=== PATIENT | male | born 1965 | race Caucasian/White ===

== ENCOUNTER → 2016-12-23 | Outpatient (CLI) | payer BC ==
[~2016-12-23] MED LIST: ASPIRIN81 M1 PO; ASPIRIN81 MG PO; BENTYL20 MG PO; CHOL MED; FISH OIL300 MG; FOLIC ACID1 MG PO; KCL; LORTAB 10-5001 EACH PO; MEDROL4 MG/DOSE- PO; NAMENDA10 MG PO; NAMENDA5 MG PO; PANTOPRAZOLE SO20 MG PO; PHENERGAN SUPP25 M1 PR; PHENERGAN25 MG PO; PRILOSEC40 MG PO; VITAMIN B-12250 MCG PO; ZOFRAN PO
[2016-12-23 11:14] LABS: FOLATE (FOLIC ACID) >23.6 ng/mL (>5.8)
[2016-12-25 22:09] LABS: SPE A1GLOB (PNL) 0.3 g/dL (0.2-0.3); SPE A2GLOB (PNL) 0.6 g/dL (0.5-0.9); SPE ALB (PNL) 4.3 g/dL (3.8-4.8); SPE BETA 1 GLOBULIN 0.5 g/dL (0.4-0.6); SPE BETA 2 GLOBULIN 0.4 g/dL (0.2-0.5); SPE GAMMA (PNL) 1.2 g/dL (0.8-1.7); SPETP (PNL) 7.2 g/dL (6.1-8.1)
== END | disposition home or self-care (01) ==
LOC: SLAB 08:18
PROVIDERS: Psychiatry & Neurology Neurology
DX: G60.9 Hereditary and idiopathic neuropathy, unspecified (principal)
CPT/HCPCS: 36415; 82607; 82746; 83921; 84165; 84443; 85651; 86140

== ENCOUNTER 2017-07-01 06:50 | Emergency (ER) | payer BC ==
[~2017-07-01] VITALS: Ht 175.3 cm; Wt 89.8 kg
--- NOTE | ~2017-07-01 | US85 ---
[facility] RADIOLOGY TEXT RESULTS PATIENT: BLAISE FRAGOSO LOCATION: SED : 61 UNIT #: [id number] AGE: [address]: Mart Conroy MD SEX: M ORDER DR: [id number] [address] [id number] E MR#: [id number] Acc #: [id number] NAME: BLAISE FRAGOSO : 1965 SEX: M STUDY DATE/TIME: 07/01/2017 8:31 UNIT: SED ROOM: STUDY DESCRIPTION: [facility] [place] [facility] Attending Physician: Mart Conroy M.D. Ordering Physician: Mart Conroy M.D. Primary Care Physician: Ritesh Denise M.D. MEDICAL IMAGING REPORT This report is preliminary unless electronic signature is present. EXAM Left lower extremity venous ultrasound. HISTORY Patient thinks he has a blood clot; pain in left leg since March. No prior history of DVT. Patient takes aspirin daily. TECHNIQUE Venous ultrasound examination of the left lower extremity was performed using grayscale, spectral Doppler and color flow Doppler imaging. FINDINGS The examination is negative. There is no evidence of left lower extremity deep venous thrombus from the groin to the lower calf. Visualized greater saphenous vein is also patent. IMPRESSION Negative examination. No evidence of left lower extremity deep venous thrombosis. Dictated by... Alli Talley M.D. THIS IS AN ELECTRONICALLY VERIFIED REPORT Alli Talley M.D. at 07/01/2017 2:30 PM MIGUEL/lupillo TD: 07/01/2017 12:29 JOB #: [id number] MEDICAL IMAGING REPORT [facility] RADIOLOGY TEXT RESULTS PATIENT: BLAISE FRAGOSO LOCATION: SED : 61 UNIT #: [id number] AGE: [address]: Mart Conroy MD SEX: M ORDER DR: Page 1 of 1
[~2017-07-01 06:50] MED LIST changes: -CHOL MED; -FISH OIL300 MG; -KCL
[2017-07-01] MEDS ORDERED: CHOL MED (06:58)
[2017-07-01] MEDS ORDERED: KCL (06:59)
[2017-07-01] MEDS ORDERED: FISH OIL300 MG (06:59)
[2017-07-01 07:45] LABS: BASOPHIL# 0.1 X10e3 (0-0.3); BASOPHIL% 0.7 % (0-2.5); EOSINOPHIL# 0.1 X10e3 (0-0.7); EOSINOPHIL% 0.7 % (0.0-7.0); HEMATOCRIT 42.9 % (38.0-50.0); HEMOGLOBIN 14.6 gm/dL (13.0-16.0); LYMPHOCYTE% 27.8 % (17.0-45.0); MEAN CELL VOLUME 86.4 FL (83-96); MEAN CORPUSCULAR HEMOGLOBIN 29.4 PG (28-34); MEAN CORPUSCULAR HGB CONC 34.1 g/dL (30-36); MEAN PLATELET VOLUME 8.1 FL (6.5-11.5); MONOCYTE# 0.7 X10e3 (0-1.0); MONOCYTE% 9.3 % (3.0-12.0); NEUTROPHIL# 4.5 X10e3 (1.5-7.1); NEUTROPHIL% 61.5 % (40-75); PLATELET COUNT 199 X10e3 (140-420); RED BLOOD COUNT 4.97 X10e (3.90-5.60); RED CELL DISTRIBUTION WIDTH 13.3 % (11.0-15.5); WHITE BLOOD COUNT 7.3 X10e3 (4.0-10.5)
[2017-07-01 07:53] LABS: DIFF IND NO
[2017-07-01 07:57] LABS: INR 0.9; PROTHROMBIN TIME (PATIENT) 10.1 SECONDS (9.5-12.4)
== END 2017-07-01 09:36 | disposition home or self-care (01) ==
LOC: SED 06:50
PROVIDERS: Emergency Medicine
DX: M79.662 Pain in left lower leg (principal); E78.5 Hyperlipidemia, unspecified; Z88.0 Allergy status to penicillin; Z86.73 Personal history of transient ischemic attack (TIA), and cerebral infarction without residual deficits; Z79.82 Long term (current) use of aspirin; Z79.899 Other long term (current) drug therapy
CPT/HCPCS: 36415; 85025; 85610; 93971; 99284